=== PATIENT | male | born 1995 | race Caucasian/White ===

== ENCOUNTER 2020-03-31 12:33 | Inpatient (IN) | payer SELFPAY ==
[2020-03-31 12:39] VITALS: BP 137/83; PULSE 105; RESP 18; TEMP 37.1; O2SAT 100; BMI 30.8
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
[2020-03-31 12:47] VITALS: O2SAT 100
[2020-03-31 13:52] LABS: Add Urine Microscopic? NO
[2020-03-31 13:52] LABS: Basophils % 0.3 %; Eosinophils # 0.1 10^3/uL (0.0-0.8); Eosinophils % 1.2 %; Hematocrit 44.9 % (42.0-52.0); Hemoglobin 14.3 g/dL (11.7-16.6); Lymphocytes # 1.8 10^3/uL (0.8-4.8); Lymphocytes % 27.3 %; Mean Corpuscular HGB Conc 31.8 g/dL (30.0-36.0); Mean Corpuscular Hemoglobin 28.8 pg (28.0-34.0); Mean Corpuscular Volume 90.3 fL (80-94); Mean Platelet Volume 10.1 fL (7.4-10.4); Monocytes # 0.5 10^3/uL (0.2-0.9); Monocytes % 7.9 %; Neutrophils # 4.2 10^3/uL (1.8-7.7); Neutrophils % 63.1 %; Nucleated Red Blood Cells % 0 %; Platelet Count 306 10^3/cmm (130-400); Red Blood Count 4.97 10^6/uL (4.1-5.3); Red Cell Distribution Width 12.6 % (12.1-15.1); White Blood Count 6.6 10^3/uL (4.0-10.0)
[2020-03-31 13:59] LABS: Bilirubin Urine 1+ (NEGATIVE); Blood Urine Neg (Negative); Glucose Urine UA Norm (Normal); Ketones Urine 1+ (Negative); Leukocyte Esterase Urine Negative (Negative); Nitrate Urine Negative (Negative); Protein Urine Neg (Negative); Urine Appearance Clear (CLEAR); Urine Color Yellow (Yellow); Urobilinogen Urine Norm (Negative); pH Urine 7 (5-7)
[2020-03-31 14:05] LABS: Amphetamines Screen Urine Negative (Negative); Barbiturates Screen Urine Negative (Negative); Benzodiazepines Screen Urine Negative (Negative); Cocaine Screen Urine Negative (Negative); Opiate Screen Urine Negative (Negative); PCP Screen Urine Negative (Negative); THC Screen Urine Negative (Negative)
[2020-03-31 14:30] LABS: Alanine Aminotransferase 86 U/L (0-41); Albumin Level 4.7 g/dL (3.5-5.2); Alkaline Phosphatase 79 IU/L (40-130); Anion Gap 15.2 (5-19); Aspartate Amino Transferase 59 U/L (0-40); Blood Urea Nitrogen 16 mg/dL (6-20); Calcium 9.7 mg/dL (8.5-10.5); Carbon Dioxide 26 mmol/L (22-29); Chloride 103 mmol/L (98-107); Creatinine Clr Calc Pharmacy 148.3257; Globulin 2.7 g/dL (1.3-4.6); Glucose 116 mg/dL (65-115); Osmolality Calculated 287 mOsm/kg (285-295); Potassium 4.2 mmol/L (3.5-5.1); Salicylate 0.4 mg/dL (3-10); Sodium 140 mmol/L (136-145); Thyroid Stimulating Hormone 3.25 uIU/mL (0.27-4.20); Total Bilirubin 1.2 mg/dL (0.15-1.2); Total Protein 7.4 g/dL (6.6-8.7)
[2020-03-31 14:44] LABS: Acetaminophen < 5.0 ug/mL (10-30); Alcohol Level < 10 mg/dL (0-10)
[2020-03-31 15:58] VITALS: BP 145/79; PULSE 105; RESP 18; O2SAT 100
[2020-03-31 16:04] VITALS: BP 145/79; PULSE 105; RESP 18; O2SAT 100
[2020-03-31 17:04] VITALS: BP 111/69; PULSE 69; RESP 18; TEMP 36.9; O2SAT 98
[2020-03-31] MEDS: nicotine 2 mg Gum BUCCAL ×2 (17:28→21:34)
[2020-03-31 22:00] VITALS: BP 144/64; PULSE 54; RESP 18; TEMP 36.6; O2SAT 95
[2020-04-01 06:00] VITALS: BP 103/57; PULSE 61; RESP 18; TEMP 36.9; O2SAT 95
[2020-04-01] MEDS: nicotine 2 mg Gum BUCCAL ×4 (12:09→21:28)
[2020-04-01 14:00] VITALS: BP 115/71; PULSE 57; RESP 18; TEMP 37.1; O2SAT 99
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
[2020-04-01] MEDS: sertraline 50 mg Tablet 25 MG PO (17:50)
[2020-04-01 22:00] VITALS: BP 115/70; PULSE 60; RESP 18; TEMP 37; O2SAT 97
[2020-04-02 06:00] VITALS: BP 147/78; PULSE 66; RESP 18; TEMP 37; O2SAT 98
[2020-04-02] MEDS: sertraline 50 mg Tablet 25 MG PO (08:47)
[2020-04-02] MEDS: nicotine 21 mg Patch 1 PATCH TRANSDERMA (09:17)
--- NOTE | 2020-04-02 13:50 | PM.NPN ---
Subjective NPU Subjective: Interval history: The patient does not know what to do with the fact that he is free to move about and no one wants to stab him, rape him, steel from him etc. Mental Status Exam MSE Comments: This is a 25-year-old male who looks at least 10 years older. He is anxious and affect is tense. Thought processes are integrated and free of any racing, blocking or looseness of association. Speech is of normal rate and volume, without dysarthria, aprosody or pressure. Cognitive functions are intact. Reason, insight and judgment likewise. Patient denies, as he has at every encounter, suicidal and homicidal ideation, plan or intent. Vitals/I&O/Wt Last Vital Signs Temp 98.6 F 04/02/20 06:00 Pulse 66 04/02/20 06:00 Resp 18 04/02/20 06:00 BP 147/78 04/02/20 06:00 Pulse Ox 98 04/02/20 06:00 Data NPU : 03/31/20 13:28 03/31/20 13:28 Involuntary Hold Information 96 Hour Hold: 96 Hour Involuntary Admission: No Attestations NPU Medical Necessity Statement*: We may be able to get this patient home in a day or 2. Time Spent in Patient Care: Greater than 35 minutes (>than 50% of time spent in counselling and/or direct pt care on unit). 50 minutes Coding Level of Care Code Acute Load Test Mechanic for Dorian Elias
[2020-04-02 14:00] VITALS: PULSE 91; RESP 17; TEMP 36.9
[2020-04-02 22:00] VITALS: BP 147/78; PULSE 63; RESP 18; TEMP 36.9; O2SAT 97
[2020-04-03 06:00] VITALS: BP 130/93; PULSE 101; RESP 18; TEMP 36.6; O2SAT 93
[2020-04-03] MEDS: sertraline 50 mg Tablet 25 MG PO (08:59)
[2020-04-03] MEDS: nicotine 21 mg Patch 1 PATCH TRANSDERMA (09:00)
--- NOTE | 2020-04-03 09:40 | PM.NDC ---
Diagnoses at Discharge Discharge Diagnosis (1) Suicidal ideation: Status: Acute Problem details: The patient is currently free of suicidal or homicidal ideation, plan or intent (2) Adjustment disorder with mixed disturbance of emotions and conduct: Status: Acute Problem details: The patient is stabilizing. Reason for Visit Reason for Visit: SI W/ ATTEMPT Hospital Course Hospital Course The patient has gone through a great deal of debriefing. Involuntary Hold Information 96 Hour Hold: 96 Hour Involuntary Admission: No Mental Status Exam MSE Comments: This is a 25-year-old male who looks at least 10 years older. He is anxious and affect is tense. Thought processes are integrated and free of any racing, blocking or looseness of association. Speech is of normal rate and volume, without dysarthria, aprosody or pressure. Cognitive functions are intact. Reason, insight and judgment likewise. Patient denies, as he has at every encounter, suicidal and homicidal ideation, plan or intent. Discharge Data Vitals: Last Vital Signs Temp 97.9 F 04/03/20 06:00 Pulse 101 H 04/03/20 06:00 Resp 18 04/03/20 06:00 BP 130/93 04/03/20 06:00 Pulse Ox 93 04/03/20 06:00 Discharge Plan Discharge Patient Disposition: Home, Self-Care Condition: Stable Prescriptions: New sertraline 50 mg Tablet 50 mg PO DAILY 4 Days Qty: 4 RF: 0 sertraline 50 mg Tablet 25 mg PO DAILY 1 Days Qty: 1 RF: 0 No Action No Known Home Medications RF: 0 Discharge Orders: Discharge Order (Routine); Ordered 04/03/20 Ordered By: Anam Mendieta Referrals: [facility] [place] [facility] [Outside] - 1-3 days (go some time within the walk-in hours and request initial intake. walk-in hours Saturday through Saturday 7:30 a.m. -2:30 p.m. ) Rachid Wang FNP [Primary Care Provider] - Discharge Diet: Usual diet Discharge Activity: Resume usual activity Discharge Attestations NPU Time Spent in Discharge Care*: greater than 30 min Specific Discharge Activities: Specific discharge activities: educating patient, discussing with pcp/other providers, discussing with case investigator/social workers/dc planners, documenting/other paperwork and evaluating patient/reviewing data Time Spent in Smoking Cessation: Time spent discussing smoking cessation with patient: 3 to 10 minutes Status at Discharge: Cognitive status at discharge: cognitively intact, Behavioral status at discharge: cooperative, Functional status at discharge: independent ambulation Overall status at discharge: patient is progressing back to baseline Coding Level of Care Code Acute Margin Analyst for Dorian Fwd Diagnoses Suicidal ideation R45.851 Adjustment disorder with mixed disturbance of emotions and conduct F43.25
[2020-04-03 09:47] VITALS: BP 130/93; PULSE 101; RESP 18; TEMP 36.6; O2SAT 93
== END 2020-04-03 10:11 | disposition home or self-care (01) | DRG 882 ==
LOC: ER 14:51 → NP 15:46
PROVIDERS: Emergency Provider Nurse Practitioner Family; PCP Nurse Practitioner Family
DX: F43.25 Adjustment disorder with mixed disturbance of emotions and conduct (principal); R45.851 Suicidal ideations; F17.210 Nicotine dependence, cigarettes, uncomplicated
CPT/HCPCS: 12345; 36415; 80053; 80306; 80307; 81003; 84443; 85025; 99284

== ENCOUNTER 2020-09-16 21:23 | Emergency (ER) | payer SELFPAY ==
[2020-09-16 21:25] VITALS: BP 157/97; PULSE 95; RESP 16; TEMP 36.4; O2SAT 100; BMI 25.7
--- NOTE | 2020-09-16 21:36 | ECG_ITS ---
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 Measurements Intervals [place] Rate: 76 P: 15 MO: 155 QRS: 19 QRSD: 114 T: 30 QT: 394 QTc: 445 Interpretive Statements SINUS RHYTHM MODERATE INTRAVENTRICULAR CONDUCTION DELAY [105+ ms QRS DURATION, 80+ ms Q/S IN V1/V2, NO Q AND 60+ ms R IN I/aVL/V5/V6] Compared to ECG 01/10/2019 14:28:24 Intraventricular conduction delay now present Incomplete right bundle-branch block no longer present Myocardial infarct finding no longer present Electronically Signed On 09-18-2020 18:51:20 SOCCER REFEREE by Jair Donnelly M.D. [email or web address]
[2020-09-16 21:45] VITALS: BP 134/92; PULSE 79; RESP 16; O2SAT 94
[2020-09-16] MEDS: sodium chloride 0.9% 1,000 ML 999 ML IV (21:50)
[2020-09-16 22:01] VITALS: BP 130/79; PULSE 85; RESP 16; O2SAT 97
--- NOTE | 2020-09-16 22:09 | W.ED.OVERDOS ---
HPI - Overdose General: Chief Complaint: Overdose Stated Complaint: unresponsive recovered Time Seen by Provider: 09/16/20 21:36 History of Present Illness: HPI Narrative: 25-year-old male found slumped over in his car by police. On EMS arrival 1 mg of intranasal Narcan was given. The patient arrives awake and alert. He has no idea how long he was down. He states what he used was fentanyl. He has a history of opioid use. He denies suicidal ideation MD complaint: accidental overdose Onset (ago): minute(s) Review of Systems Const: Denies: fever(s) or chills Eyes: Denies: change in vision ENMT: Denies: odynophagia or sinus pain Card: Denies: chest pain, palpitations or irregular heart rhythm Resp: Denies: dyspnea, productive cough, non-productive cough or wheezing GI: Denies: abdominal pain, nausea or vomiting : Denies: difficulty urinating or hematuria Skin/Breast: Denies: rash or erythema Neuro: Reports: dizziness; Denies: headache(s), vertigo, confusion or seizure-like activity Psych: Denies: anxiety PFSH ED PFSH: Social History Smoking and tobacco status: current every day smoker Physical Exam Const: GENERAL APPEARANCE: well developed ORIENTATION/CONSCIOUSNESS: Yes oriented to person and Yes oriented to place; not oriented to time HENMT: COMMON NORMALS: normocephalic, external ears normal and Normal external nose present HEAD & SCALP: normocephalic; no scalp tenderness FACE & SINUS: normal facial exam NOSE: Normal external nose present and No nasal discharge present EXTERNAL EAR: Yes external ears normal Eye: COMMON NORMALS: Equal, round and reactive pupils present, EOMs intact bilaterally and conjunctivae normal EYELID: eyelids normal CONJUNCTIVA: Yes conjunctivae normal PUPIL: Yes Equal, round and reactive pupils present Neck/C-Spine: GENERAL: No tracheal deviation Chest: COMMONS NORMALS: normal inspection of the chest CHEST: No tenderness Resp: COMMON NORMALS: clear to auscultation bilaterally EFFORT & INSPECTION: No tachypneic, No respiratory distress, No retractions, No uses accessory muscles and No tracheal deviation AUSCULTATION: clear to auscultation bilaterally, no rhonchi, no wheezes and lung sounds not diminished Cardio: COMMON NORMALS: regular rate and regular rhythm RATE: regular rate RHYTHM: regular rhythm HEART SOUNDS: no murmurs PERIPHERAL PULSES: radial pulses present GI: INSPECTION: No abdominal distension AUSCULTATION: No Hyperactive bowel sounds present and No Hypoactive bowel sounds present PALPATION: No Guarding due to palpation present (GI) and No Rigid due to palpation PERCUSSION: no dullness to percussion and no tympanic to percussion : COMMON NORMALS: Yes no CVA tenderness BLADDER/KIDNEY EXAM: Yes no CVA tenderness Back/Pelvis: COMMON NORMALS: no CVA tenderness Neuro: SENSORIUM/ORIENTATION: Yes oriented to person, Yes oriented to place and No oriented to time Psych: COMMON NORMALS: mental status grossly normal Skin: GENERAL SKIN EXAM: other (Puncture roblero to extremity) Course Vital Signs: Vital signs: Vital Signs Temperature 97.5 F L 09/16/20 21:25 Pulse Rate 81 09/16/20 23:59 Respiratory Rate 16 09/17/20 00:00 Blood Pressure 132/83 09/16/20 23:59 Pulse Oximetry 97 09/16/20 23:59 MDM - Overdose MDM Narrative: Medical decision making narrative: Vitals are stable at this point. His blood pressure is 130/79, rate 75, pulse ox 95 Patient has remained awake and alert. His oxygen saturations have been good. He is received a liter of fluid. He states he does get depressed, but denies suicidality. Lab Data: Labs: Lab Results 09/16/20 09/16/20 09/16/20 Range/Units 21:52 21:52 22:44 WBC 13.5 H (4.0-10.0) 10^3/ uL RBC 4.77 (4.1-5.3) 10^6/u L Hgb 13.8 (11.7-16.6) g/dL Hct 43.6 (42.0-52.0) % MCV 91.4 (80-94) fL MCH 28.9 (28.0-34.0) pg MCHC 31.7 (30.0-36.0) g/dL RDW 13.0 (12.1-15.1) % Plt Count 393 (130-400) 10^3/c mm MPV 9.6 (7.4-10.4) fL Neut % (Auto) 72.4 % Lymph % (Auto) 19.6 % [place] % (Auto) 7.1 % Eos % (Auto) 0.3 % Baso % (Auto) 0.3 % Neut # (Auto) 9.76 H (1.8-7.7) 10^3/u L Lymph # (Auto) 2.7 (0.8-4.8) 10^3/u L [place] # (Auto) 1.0 H (0.2-0.9) 10^3/u L Eos # (Auto) 0.0 (0.0-0.8) 10^3/u L Baso # (Auto) 0.0 (0.0-0.1) 10^3/u L Nucleated RBC % (a uto) 0 % Nucleated RBCs # 0.0 /100WBC Sodium 135 L (136-145) mmol/L Potassium 4.4 (3.5-5.1) mmol/L Chloride 99 (98-107) mmol/L Carbon Dioxide 27 (22-29) mmol/L Anion Gap 13.4 (5-19) BUN 13 (6-20) mg/dL Creatinine 1.1 (0.7-1.2) mg/dL GFR Calculation 81.6 L (90-130) mL/min Glucose 200 H (65-115) mg/dL Calculated Osmolal ity 286 (285-295) mOsm/k g Calcium 8.7 (8.5-10.5) mg/dL Total Bilirubin 0.4 (0.15-1.2) mg/dL AST 31 (0-40) U/L ALT 46 H (0-41) U/L Alkaline Phosphata se 90 (40-130) IU/L Total Protein 7.5 (6.6-8.7) g/dL Albumin 4.4 (3.5-5.2) g/dL Globulin 3.1 (1.3-4.6) g/dL Urine Color Yellow (Yellow) Urine Appearance Clear (CLEAR) Urine pH 5.0 (5-7) Ur Specific Gravit y 1.030 (1.005-1.030) Urine Protein Trace (Negative) Urine Glucose (UA) Norm (Normal) Urine Ketones Negative (Negative) Urine Blood Neg (Negative) Urine Nitrate Negative (Negative) Urine Bilirubin Neg (Negative) Urine Urobilinogen Norm (Negative) mg/dL Ur Leukocyte Angella ase Negative (Negative) Urine RBC 0-4 H (0-2) /hpf Urine WBC None (0-5) /hpf Ur Squamous Epith Cells 5-10 H (0-5) /hpf Amorphous Sediment Not Reportable Urine Bacteria 1+ H (NONE) /hpf Hyaline Casts 0-4 H /lpf Urine Mucus 1+ /hpf Urine Opiates Scre en (Negative) ng/mL Ur Barbiturates Sc reen (Negative) ng/mL Ur Phencyclidine S crn (Negative) ng/mL Ur Amphetamines Sc reen (Negative) ng/mL U Benzodiazepines Scrn (Negative) ng/mL Urine Cocaine Scre en (Negative) ng/mL U Marijuana (THC) Screen (Negative) ng/mL Ethyl Alcohol < 10 (0-10) mg/dL 09/16/20 Range/Units 22:44 WBC (4.0-10.0) 10^3/ uL RBC (4.1-5.3) 10^6/u L Hgb (11.7-16.6) g/dL Hct (42.0-52.0) % MCV (80-94) fL MCH (28.0-34.0) pg MCHC (30.0-36.0) g/dL RDW (12.1-15.1) % Plt Count (130-400) 10^3/c mm MPV (7.4-10.4) fL Neut % (Auto) % Lymph % (Auto) % [place] % (Auto) % Eos % (Auto) % Baso % (Auto) % Neut # (Auto) (1.8-7.7) 10^3/u L Lymph # (Auto) (0.8-4.8) 10^3/u L [place] # (Auto) (0.2-0.9) 10^3/u L Eos # (Auto) (0.0-0.8) 10^3/u L Baso # (Auto) (0.0-0.1) 10^3/u L Nucleated RBC % (a uto) % Nucleated RBCs # /100WBC Sodium (136-145) mmol/L Potassium (3.5-5.1) mmol/L Chloride (98-107) mmol/L Carbon Dioxide (22-29) mmol/L Anion Gap (5-19) BUN (6-20) mg/dL Creatinine (0.7-1.2) mg/dL GFR Calculation (90-130) mL/min Glucose (65-115) mg/dL Calculated Osmolal ity (285-295) mOsm/k g Calcium (8.5-10.5) mg/dL Total Bilirubin (0.15-1.2) mg/dL AST (0-40) U/L ALT (0-41) U/L Alkaline Phosphata se (40-130) IU/L Total Protein (6.6-8.7) g/dL Albumin (3.5-5.2) g/dL Globulin (1.3-4.6) g/dL Urine Color (Yellow) Urine Appearance (CLEAR) Urine pH (5-7) Ur Specific Gravit y (1.005-1.030) Urine Protein (Negative) Urine Glucose (UA) (Normal) Urine Ketones (Negative) Urine Blood (Negative) Urine Nitrate (Negative) Urine Bilirubin (Negative) Urine Urobilinogen (Negative) mg/dL Ur Leukocyte Angella ase (Negative) Urine RBC (0-2) /hpf Urine WBC (0-5) /hpf Ur Squamous Epith Cells (0-5) /hpf Amorphous Sediment Urine Bacteria (NONE) /hpf Hyaline Casts /lpf Urine Mucus /hpf Urine Opiates Scre en Positive H (Negative) ng/mL Ur Barbiturates Sc reen Negative (Negative) ng/mL Ur Phencyclidine S crn Negative (Negative) ng/mL Ur Amphetamines Sc reen Positive H (Negative) ng/mL U Benzodiazepines Scrn Negative (Negative) ng/mL Urine Cocaine Scre en Negative (Negative) ng/mL U Marijuana (THC) Screen Positive H (Negative) ng/mL Ethyl Alcohol (0-10) mg/dL Discharge Plan Discharge Patient Disposition: Home Clinical Impression: Drug overdose Qualifiers: Encounter type: initial encounter Injury intent: accidental or unintentional Qualified Code(s): T50.901A - Poisoning by unspecified drugs, medicaments and biological substances, accidental (unintentional), initial encounter Condition: Stable Prescriptions: No Action No Known Home Medications RF: 0 Discharge Orders: Discharge Order (Routine); Ordered 09/16/20 Ordered By: Gregorio Paredes Discharge Diet: Advance as tolerated Discharge Activity: Increase activity as tolerated Activity Restrictions/Additional Instructions: Abstain from illicit drug use. Return immediately to the ER for thoughts or wishes to harm your self or others. Return for any other concerning symptoms. Coding Level of Care Code ED Respiratory Therapist Assistant for Dorian Fwparker Exam Comprehensive
[2020-09-16 22:33] LABS: Alanine Aminotransferase 46 U/L (0-41); Albumin Level 4.4 g/dL (3.5-5.2); Alkaline Phosphatase 90 IU/L (40-130); Anion Gap 13.4 (5-19); Aspartate Amino Transferase 31 U/L (0-40); Blood Urea Nitrogen 13 mg/dL (6-20); Calcium 8.7 mg/dL (8.5-10.5); Carbon Dioxide 27 mmol/L (22-29); Chloride 99 mmol/L (98-107); Globulin 3.1 g/dL (1.3-4.6); Glomerular Filtration Rate 81.6 mL/min (90-130); Glucose 200 mg/dL (65-115); Osmolality Calculated 286 mOsm/kg (285-295); Potassium 4.4 mmol/L (3.5-5.1); Sodium 135 mmol/L (136-145); Total Bilirubin 0.4 mg/dL (0.15-1.2); Total Protein 7.5 g/dL (6.6-8.7)
[2020-09-16 22:38] LABS: Alcohol Level < 10 mg/dL (0-10); Basophils % 0.3 %; Eosinophils % 0.3 %; Hematocrit 43.6 % (42.0-52.0); Hemoglobin 13.8 g/dL (11.7-16.6); Lymphocytes # 2.7 10^3/uL (0.8-4.8); Lymphocytes % 19.6 %; Mean Corpuscular HGB Conc 31.7 g/dL (30.0-36.0); Mean Corpuscular Hemoglobin 28.9 pg (28.0-34.0); Mean Corpuscular Volume 91.4 fL (80-94); Mean Platelet Volume 9.6 fL (7.4-10.4); Monocytes % 7.1 %; Neutrophils # 9.76 10^3/uL (1.8-7.7); Neutrophils % 72.4 %; Nucleated Red Blood Cells % 0 %; Platelet Count 393 10^3/cmm (130-400); Red Blood Count 4.77 10^6/uL (4.1-5.3); White Blood Count 13.5 10^3/uL (4.0-10.0)
[2020-09-16 22:40] VITALS: BP 134/76; PULSE 109; RESP 17; O2SAT 99
--- NOTE | 2020-09-16 22:51 | PC.NURSE ---
patient given water and pillow by staff.
[2020-09-16 23:04] VITALS: BP 125/86; PULSE 76; RESP 16; O2SAT 96
[2020-09-16 23:36] LABS: Add Urine Culture? No; Add Urine Microscopic? YES; Amphetamines Screen Urine Positive (Negative); Bacteria Urine 1+ /hpf; Barbiturates Screen Urine Negative (Negative); Benzodiazepines Screen Urine Negative (Negative); Bilirubin Urine Neg (Negative); Blood Urine Neg (Negative); Cocaine Screen Urine Negative (Negative); Glucose Urine UA Norm (Normal); Hyaline Casts Urine 0-4 /lpf; Ketones Urine Negative (Negative); Leukocyte Esterase Urine Negative (Negative); Mucus Urine 1+ /hpf; Nitrate Urine Negative (Negative); Opiate Screen Urine Positive (Negative); PCP Screen Urine Negative (Negative); Protein Urine Trace (Negative); RBC Urine 0-4 /hpf (0-2); THC Screen Urine Positive (Negative); Urine Appearance Clear (CLEAR); Urine Color Yellow (Yellow); Urobilinogen Urine Norm (Negative)
[2020-09-16 23:59] VITALS: BP 132/83; PULSE 81; RESP 16; O2SAT 97
[2020-09-17] VITALS: RESP 16
[2020-09-17 02:05] VITALS: BP 117/71; BP 142/59; PULSE 79; PULSE 89; RESP 15; RESP 16; O2SAT 92; O2SAT 98
== END 2020-09-17 02:07 | disposition home or self-care (01) ==
PROVIDERS: Emergency Provider Emergency Medicine
DX: T40.411A Poisoning by fentanyl or fentanyl analogs, accidental (unintentional), initial encounter (principal); Y92.810 Car as the place of occurrence of the external cause; Z79.891 Long term (current) use of opiate analgesic; F17.200 Nicotine dependence, unspecified, uncomplicated
CPT/HCPCS: 12345; 36415; 80053; 80306; 80307; 81001; 85025; 93005; 96360; 99283; J7030